=== PATIENT | female | born 1990 | race Caucasian/White ===

== ENCOUNTER 2018-05-19 10:50 | Emergency (ER) | payer OTHER ==
[2018-05-19 11:10] LABS: ADD MAN DIFF? NO
[2018-05-19 11:14] LABS: BASO # 0.1 x10^3/uL (0.0-0.2); BASO % 1 % (0-3); EOS % 0 % (0-3); HEMATOCRIT 36.5 % (36.0-47.0); HEMOGLOBIN 12.5 g/dL (12.0-15.5); LYMPH % 15 % (24-48); MEAN CORPUSCULAR HEMOGLOBIN 29 pg (25-35); MEAN CORPUSCULAR HGB CONC 34 g/dL (31-37); MEAN CORPUSCULAR VOLUME 85 fL (79-100); MONO # 0.9 x10^3/uL (0.0-1.1); MONO % 7 % (0-9); NEUT # 10.5 x10^3uL (1.8-7.7); NEUT % 78 % (31-73); PLATELET COUNT 309 x10^3/uL (140-400); RED BLOOD COUNT 4.27 x10^6/uL (3.50-5.40); WHITE BLOOD COUNT 13.5 x10^3/uL (4.0-11.0)
[2018-05-19] MEDS: SIMETHICONE 80 MG TAB.CHEW PO (11:19)
[2018-05-19] MEDS: ONDANSETRON PF 4 MG/2 ML VIAL. IV (11:20)
[2018-05-19] MEDS: KETOROLAC 30 MG/ML INJ. IV (11:20)
[2018-05-19] MEDS: MORPHINE SULFATE 10 MG/ML VIAL. IV ×3 (11:21→15:53)
[2018-05-19] MEDS: PANTOPRAZOLE IV PUSH 40 MG VIAL. IVP (11:21)
[2018-05-19 11:23] LABS: ANION GAP 10 (6-14); BLOOD UREA NITROGEN 9 mg/dL (7-20); BUN/CREATININE RATIO 10 (6-20); CALCIUM 9.2 mg/dL (8.5-10.1); CARBON DIOXIDE 25 mmol/L (21-32); CHLORIDE 104 mmol/L (98-107); CREATININE 0.9 mg/dL (0.6-1.0); GFR 74.6; GLUCOSE 90 mg/dL (70-99); POTASSIUM 4.1 mmol/L (3.5-5.1); SODIUM 139 mmol/L (136-145)
[2018-05-19 11:27] LABS: ETHANOL < 10 mg/dL (0-10)
[2018-05-19 11:29] LABS: ALBUMIN 3.6 g/dL (3.4-5.0); ALK PHOS 38 U/L (46-116); ALT (SGPT) 32 U/L (14-59); AST (SGOT) 27 U/L (15-37); LIPASE 97 U/L (73-393); TOTAL BILIRUBIN 0.3 mg/dL (0.2-1.0); TOTAL PROTEIN 7.2 g/dL (6.4-8.2)
[2018-05-19] MEDS: IOHEXOL 300 MG/ML 100ML VIAL. IV (11:45)
[2018-05-19 11:59] LABS: AMPHETAMINE/METHAMPHETAMINE NEG (NEG); BARBITURATES NEG (NEG); BENZODIAZEPINES POS (NEG); CANNABINOIDS NEG (NEG); COCAINE NEG (NEG); ETHANOL, URINE NEG (NEG); METHADONE NEG (NEG); OPIATES POS (NEG); PHENCYCLIDINE NEG (NEG)
[2018-05-19] MEDS ORDERED: CONTRAST GIVEN. MC (12:00)
[2018-05-19 12:03] LABS: BILIRUBIN,URINE NEGATIVE (NEG); CLARITY,URINE CLEAR; COLOR,URINE YELLOW; GLUCOSE,URINE NEGATIVE (NEG); NITRITE,URINE NEGATIVE (NEG); PH,URINE 7.5; PROTEIN,URINE NEGATIVE (NEG-TRACE); UROBILINOGEN,URINE 0.2 mg/dL (0.2 mg/dL)
[2018-05-19 12:05] LABS: BACTERIA,URINE FEW /HPF (0-FEW); RBC,URINE OCC /HPF (0-2)
[2018-05-19 12:06] LABS: SQUAMOUS EPITHELIAL CELL,UR MOD /LPF
== END 2018-05-19 15:28 | disposition home or self-care (01) ==
LOC: ER 10:50
DX: K66.8 Other specified disorders of peritoneum (principal); R10.11 Right upper quadrant pain; Z90.49 Acquired absence of other specified parts of digestive tract; Z88.8 Allergy status to other drugs, medicaments and biological substances
CPT/HCPCS: 36415; 74177; 80053; 80307; 81001; 83690; 85025; 87086; 96374; 96375; 96376; 99285-25; C9113; G0480; J1885; J2270; J2405; Q9967